=== PATIENT | male | born 1960 | race Caucasian/White ===

== ENCOUNTER → 2022-06-08 16:32 | Outpatient (CLI) | payer MEDICARE, SELFPAY ==
--- NOTE | ~2022-06-08 | XR_ITS ---
EXAM: XR lumbar spine min 4V DATE: 06/08/2022 17:03 HISTORY: M54.30 - Sciatica, unspecified side . COMPARISON: None available. FINDINGS: 5 nonrib-bearing lumbar-type vertebral bodies. Pedicles intact. No pars defect. 3 mm anter olisthesis of L4 on L5. Vertebral body heights preserved. Moderate L2-3 and L4-5 disc space narrowing . Severe narrowing at L3-4 with vacuum phenomenon. Multilevel marginal osteophytosis, partially bridg ing anterior osteophyte at L3-4. Multilevel facet hypertrophy and sclerosis. No fracture or dislocati on. Minimal aortic calcification. IMPRESSION: Grade 1 anterolisthesis at L4-5. Multilevel degenerative disc disease, severe at L3-4. Mu ltilevel facet arthropathy. Reviewed, dictated and finalized at location K. IMPRESSION: Grade 1 anterolisthesis at L4-5. Multilevel degenerative disc disea se, severe at L3-4. Multilevel facet arthropathy.
== END ==
PROVIDERS: PCP Family Medicine; Visit Provider Physician Assistant Medical
DX: M54.30 Sciatica, unspecified side (principal); M51.36 Other intervertebral disc degeneration, lumbar region
CPT/HCPCS: 72110

== ENCOUNTER 2025-05-22 08:21 | Outpatient (CLI) | payer MEDICARE, SELFPAY ==
--- OUTSIDE RECORDS SUMMARY | 2025-05-22 08:34 | XMS_ITS | Clinical Summary ---
Author Organization [facility] Address [address] 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 This disclosure is being madepursuant to the Care Everywhere program and may not contain all information available regarding this patient. Last updated 18.[facility] Allergies No known active allergies Medications * Be aware that medications may not be up to date on this document. Alwaysverify current medications with the patient. gentamicin (GARAMYCIN) 0.1 % cream Apply to affected area 2 times daily 30 g 3 8 Active ONETOUCH ULTRA TEST STRIPS test stripIndicatio ns:Type 2 diabetes mellitus with hyperglycemia, with long-term current use of insulin (HCC) Use 1 strip as directed 300 strip 4 9 Active allopurinol (ZYLOPRIM) 300 MG tablet Take 300 mg by mouth once daily 0 Active ALPRAZolam (XANAX) 0.5 MG tablet TAKE 1 TABLET BY MOUTH THREE TIMES A DAY NEEDED FOR ANXIETY 0 Active atorvastatin (LIPITOR) 20 MG tablet Take 20 mg by mouth once daily 0 Active lisinopril (PRINIVIL; ZESTRIL) 20 MG tablet Take 20 mg by mouth 2 times daily 0 Active metoprolol succinate XL 24hr (TOPROL XL) 100 MG tablet Take 100 mg by mouth once daily 0 Active testosterone (ANDROGEL;TEST IM) 50 MG/5GM (1%) gel PLEASE SEE ATTACHED FOR DETAILED DIRECTIONS 0 Active insulin glargine (LANTUS SOLOSTAR) penIndications :Type 2 diabetes mellitus with hyperglycemia, with long-term current use of insulin (HCC) Inject 30 Units subcutaneously at bedtime 5 Pen 11 0 Active insulin lispro (HUMALOG;ADMEL OG) 100 UNIT/ML penIndications :Type 2 diabetes mellitus with hyperglycemia, with long-term current use of insulin (HCC) Inject 7-9 Units subcutaneously 3 times daily before meals 5 Pen 11 0 Active metFORMIN (GLUCOPHAGE) 500 MG tabletIndicati ons:Type 2 diabetes mellitus with hyperglycemia, with long-term current use of insulin (HCC) Take 1 tablet by mouth 2 times daily 180 tablet 4 0 Active Active Problems Problem Noted Date Diagnosed Date Type 2 diabetes mellitus wit h hyperglycemia, with long-term current use of insulin 12/07/2018 Chronic pancreatitis 12/07/2018 Vitamin B12 deficiency 12/07/2018 Immunizations Immunization Administration Dates Next Due TDAP (7yrs+) 04/19/2014 Family History Medical History Relation Name Comments None Known Brother None Known Father None Known Maternal Grandfather None Known Maternal Grandmother None Known Mother None Known Other None Known Paternal Grandfather None Known Paternal Grandmother None Known Sister Alcohol abuse Neg Hx Asthma Neg Hx Dementia Neg Hx Depression Neg Hx Drug Abuse Neg Hx Glaucoma Neg Hx Gout Neg Hx Leukemia Neg Hx Migraine Neg Hx Multiple Sclerosis Neg Hx Other Neg Hx Thyroid Disease Neg Hx Relation Name Status Comments Brother Father Maternal Grandfather Maternal Grandmother Mother Other Paternal Grandfather Paternal Grandmother Sister Social History Tobacco Use Types Packs/Day Years Used Date Smoking Tobacco: Never Smokeless Tobacco: Never Alcohol Use Standard Drinks/Week Comments No 0 (1 standard drink = 0.6 oz pur e alcohol) Sex and Gender Information Value Date Recorded Sex Assigned at Not on file 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 Gender Identity Not on file Sexual Orientation Not on file Last Filed Vital Signs Vital Sign Reading Time Taken Comments Blood Pressure 134/84 04/23/2020 3:11 PM CDT Pulse 76 04/23/2020 3:11 PM CDT Temperature 37 C (98.6 F) 04/23/2020 3:11 PM CDT Respiratory Rate 12 03/17/2017 3:01 PM CDT Oxygen Saturation 98% 04/23/2020 3:11 PM CDT Inhaled Oxygen Concentration - - Weight 88 kg (194 lb) 04/23/2020 3:11 PM CDT Height 177.8 cm (5' 10) 04/23/2020 3:11 PM CDT Body Mass Index 27.84 04/23/2020 3:11 PM CDT Plan of Treatment Health Maintenance Due Date Last Done Comments COLOGUARD (AGES 45-75) - COLON CA SCREENING 1958 COLON MONITORING 1958 COLONOSCOPY - COLON CA SCREENING 1960 CT COLONOGRAPHY - COLON CA SCREENING 1960 Colorectal Cancer Screening 1958 FIT - COLON CA SCREENING 1958 FLEX SIG - COLON CA SCREENING 1958 HEPATITIS C SCREENING 08/05/1976 PNEUMOCOCCAL VACCINE 50+ (1 of 1 - PCV) 2008 ZOSTER VACCINE (1 of 2) 2008 DIABETES-SERUM CREATININE 03/17/20182016, 11/02/2014, 11/01/2014, Additional history exists Respiratory Syncytial Virus (RSV) Vaccine Pt: or over 60 yrs (1 - Risk 60-74 years 1-dose series) 2018 DIABETES-HGB A1C 10/21/2020 04/23/2020, , 03/17/2017, Additional history exists DIABETES-FOOT EXAM WITH MONOFILAMENT 04/23/2021 04/23/2020 DTAP/TDAP/TD VACCINES (2 - Td or Tdap) 04/19/2024 04/19/2014 DEPRESSION SCREENING 08/22/2024 DIABETES - URINE PROTEIN SCREENING 08/22/2024 03/17/2017, 11/13/2015, 05/12/2015 COVID-19 VACCINE ( - season) 2025 INFLUENZA VACCINE (#1) 2025 HEPATITIS B VACCINE Aged Out No longe r eligible based on patient's age to complete this topic HIB VACCINE Aged Out No longer eligi ble based on patient's age to complete this topic HPV VACCINE Aged Out No longer eligi ble based on patient's age to complete this topic MENINGOCOCCAL (Group B) VACCINE SHARED DECISION-MAKING Aged Out No longer eligible based on patient's age to complete this topic MENINGOCOCCAL GROUPS A/C/Y/W VACCINE Aged Out No longer eligible based on patient's age to complete this topic Procedures Procedure Name Priority Date/Time Associated Diagnosis Comments HEMOGLOBIN A1C - POINT OF CARE (AMB) [facility] Routine 04/23/2020 Type 2 diabetes mellitus with hyperglycemia, with long-term current use of insulin MICROALB/CREAT RATIO URINE RANDOM PANEL Routine 03/17/2017 4:41 PM CDT COMPREHENSIVE METABOLIC PANEL Routine 03/17/2017 4:41 PM CDT from Last 3 Months or Most Recently Relevant to Health Maintenance Results * HEMOGLOBIN A1C - POINT OF CARE (AMB) [facility] (04/23/2020) Hemoglobin A1c POCT 9.9 BLOOD SPECIMEN / Unknown 04/23/2020 us Mery Carlton MD LAB - POINT OF CARE ORDERABLE S Final Result * MICROALB/CREAT RATIO URINE RANDOM PANEL (03/17/2017 4:41 PM CDT) Albumin Random Urine <5.0 Not Established mcg/mL [facility] Creatinine Urine 43 Not Established mg/dL [facility] Comment:Result obtained by shasta valencia. Urine Albumin/Creati nine Ratio <12 <30 mg/g [facility] Albumin/Creati nine Ratio Urine See Comment <30 mg/g [facility] Comment:Unable to calculate the Urine Albumin/Creatinine Ratio due to one or more analyte concentration(s) being outside the measuring limits of the instrument. Urine specimen (specimen) URINE / Unknown 03/17/2017 4:41 PM CDT 03/17/2017 5:05 PM CDT us Beltran Leos MD LAB - URINE CHEMISTRY ORDERABL ES Final Result [facility] [address] [place] [address] * (ABNORMAL) COMPREHENSIVE METABOLIC PANEL (03/17/2017 4:41 PM CDT) BUN 27(H) 7 - 26 mg/dL [facility] Creatinine 1.1 0.6 - 1.2 mg/dL [facility] Sodium 135(L) 136 - 145 mmol/L [facility] Potassium 4.3 3.5 - 4.5 mmol/L [facility] Chloride 100 98 - 107 mmol/L [facility] CO2 25 22 - 29 mmol/L [facility] Glucose 196(H) 70 - 115 mg/dL [facility] Calcium 9.7 8.4 - 10.2 mg/dL [facility] Protein Total 8.0 6.0 - 8.3 g/dL [facility] Albumin 3.9 3.4 - 5.0 g/dL [facility] Bilirubin Total 1.7(H) 0.2 - 1.2 mg/dL [facility] Alkaline Phosphatase 78 40 - 150 Units/L [facility] ALT 22 0 - 55 Units/L [facility] AST 23 5 - 34 Units/L [facility] Anion Gap 14 8 - 18 [facility] BUN/Creatinine Ratio 25(H) 7 - 23 [facility] Osmolality Calculated 291 270 - 300 mOsm/kg [facility] Albumin/Globulin Ratio 1.0(L) 1.1 - 2.3 [facility] eGFR >60 >60 mL/min/1.7 3 m2 [facility] Blood specimen (specimen) BLOOD SPECIMEN / Unknown 03/17/2017 4:41 PM CDT 03/17/2017 5:04 PM CDT Beltran Leos MD LAB - CHEMISTRY ORDERABLES Fin al Result Performing Organization Address City/[facility]/ZIP Co de Phone Number [address] [phone] from Last 3 Months or Most Recently Relevant to Health Maintenance Insurance MEDICARE
--- OUTSIDE RECORDS SUMMARY | 2025-05-22 08:34 | XMS_ITS | Encounter Summary ---
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 Name Role Phone Unavailable Primary Care Provider Unavailabl e Encounter Details Date Type Department Care Team (Late st Contact Info) Description 04/14/2020 Telephone [facility] [address] [place] [phone] Beltran Leos MD [address] [place] [address] Social History Tobacco Use Types Packs/Day Years Used Date Smoking Tobacco: Never Smokeless Tobacco: Never Alcohol Use Standard Drinks/Week Comments No 0 (1 standard drink = 0.6 oz pur e alcohol) Sex and Gender Information Value Date Recorded Sex Assigned at Not on file 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
--- OUTSIDE RECORDS SUMMARY | 2025-05-22 08:34 | XMS_ITS | Clinical Summary ---
Author Organization [facility] Address [address] [place] [address] Care Team Providers Care French Professor Name Role Phone Rachael Espinosa MD Primary Care Provider [phone] Allergies No known active allergies Medications aspirin 81 mg tablet Take 1 tablet (81 mg total) by mouth daily Active omega-3 fatty acids 500 mg capsule 2 times daily. Activ e multivitamin tabletIndicati ons:Vitamin Deficiency Prevention daily. Active cyanocobalamin (Vitamin B-12) 500 mcg tabletIndicati ons:Prevention of Vitamin B12 Deficiency daily Pt Taking B Complex Active niacin ER (NIASPAN) 500 mg CR tablet Take 1 tablet (500 mg total) by mouth nightly Active allopurinol (ZYLOPRIM) 100 mg tablet Take 1 tablet (100 mg total) by mouth daily Active metoprolol XL (TOPROL-XL) 100 mg 24 hr tablet Take 1 tablet (100 mg total) by mouth daily. 90 tablet 3 8 Active lisinopril (PRINIVIL,ZEST RIL) 20 mg tablet Take 1 tablet (20 mg total) by mouth 2 (two) times a day. 180 tablet 2 8 Active ALPRAZolam (XANAX) 0.5 mg tablet as needed 2 9 Active testosterone (TESTIM,VOGELX O) 50 mg/5 gram (1 %) gel 5 9 Active blood glucose diagnostic strip 1 each by Not Applicable route 04/18/201 9 Active cinnamon bark 500 mg capsule Take 1 capsule (500 mg total) by mouth daily Active turmeric root extract 500 mg capsule Take by mouth Active atorvastatin (LIPITOR) 40 mg tablet Take 1 tablet (40 mg total) by mouth daily Active allopurinoL (ZYLOPRIM) 300 mg tablet Take 1 tablet (300 mg total) by mouth daily 2 Active traMADoL (ULTRAM) 50 mg tablet Take by mouth every 6 (six) hours as needed 2 Active celecoxib (CeleBREX) 200 mg capsule Take by mouth daily 3 Active colchicine (COLCRYS) 0.6 mg capsule TAKE 1 CAPSULE BY MOUTH TWICE A DAY NEEDED FOR GOUT FLARE 3 Active insulin lispro (HumaLOG, ADMELOG) 100 unit/mL pen for injection INJECT 8 UNITS SUBCUTANEOUSLY DAILY 3 Active Farxiga 10 mg tabletIndicati ons:Type 2 diabetes mellitus with hyperglycemia, with long-term current use of insulin (HCC) Take 1 tablet (10 mg total) by mouth daily 90 tablet 3 4 025 Active metFORMIN (GLUCOPHAGE) 1,000 mg tabletIndicati ons:Type 2 diabetes mellitus with hyperglycemia, with long-term current use of insulin (HCC) Take 1 tablet (1,000 mg total) by mouth 2 (two) times a day with meals 180 tablet 3 4 025 Active insulin lispro (HumaLOG) 100 unit/mL vial for injectionIndic ations:Type 2 diabetes mellitus with hyperglycemia, with long-term current use of insulin (HCC) Inject up to 100 units/day via insulin pump 30 mL 11 4 Active Active Problems Problem Noted Date Diagnosed Date Insulin pump status 07/08/2022 Assessment & Plan (07/18/2024 2:28 PM TIRE LAYER): Have long acting , basal insulin ( e.g. Lantus, Levemir, NPH, ) and insulin syringes as back up in case of pump failure If you have to take your insulin pump off for more than 12 h, start taking basal insulin, every 24 h ( take 80 % of the 24 h insulin delivered to you via insulin pump as calculated based on your basal rates ) and inject meal time insulin by injections, calculating the same way you do with your pump bolus ( according with carb intake and blood sugar readings ) Assessment & Plan (04/27/2023 2:45 PM CDT): Have long acting , basal insulin ( e.g. Lantus, Levemir, NPH, ) and insulin syringes as back up in case of pump failure If you have to take your insulin pump off for more than 12 h, start taking basal insulin, every 24 h ( take 80 % of the 24 h insulin delivered to you via insulin pump as calculated based on your basal rates ) and inject meal time insulin by injections, calculating the same way you do with your pump bolus ( according with carb intake and blood sugar readings ) Assessment & Plan (10/25/2022 3:42 PM TIRE LAYER): Have long acting , basal insulin ( e.g. Lantus, Levemir, NPH, ) and insulin syringes as back up in case of pump failure If you have to take your insulin pump off for more than 12 h, start taking basal insulin, every 24 h ( take 80 % of the 24 h insulin delivered to you via insulin pump as calculated based on your basal rates ) and inject meal time insulin by injections, calculating the same way you do with your pump bolus ( according with carb intake and blood sugar readings ) Assessment & Plan (07/08/2022 4:09 PM TIRE LAYER): New BR pattern: 12a 0.95, 6a 0.85. Hyperlipidemia associated with type 2 diabetes jamie jones 03/02/2022 Assessment & Plan (07/18/2024 2:27 PM TIRE LAYER): Patient on statin therapy Tolerating well Assessment & Plan (04/27/2023 2:44 PM CDT): Patient on statin therapy Tolerating well Assessment & Plan (10/25/2022 3:44 PM TIRE LAYER): Patient on statin therapy Tolerating well LDL at goal Low HDL, advise to increase exercise Assessment & Plan (07/08/2022 4:08 PM TIRE LAYER): Chronic problem. On statin therapy, no changes. Assessment & Plan (05/06/2022 2:12 PM CDT): Chronic problem. On statin therapy, no changes. Assessment & Plan (03/02/2022 3:20 PM CDT): Patient on statin therapy Tolerating well Last LDL still above goal Will reassess in 6 months Type 2 diabetes mellitus wit h hyperglycemia, with long-term current use of insulin 03/02/2022 Assessment & Plan (07/18/2024 2:28 PM TIRE LAYER): Chronic uncontrolled, slightly worsening Hemoglobin A1c 7.2% goal A1c less than 7% without hypoglycemia Reviewed Dexcom download Average sugar 161 Target blood sugar range 77% High 19% Very high 4% Dose 0% Very low less than 1% Patient having slight occasional postprandial hyperglycemia Counseled on diet and exercise No changes today Continue current T slim insulin pump settings continue oral metformin and Farxiga Advised to make an eye exam appointment Daily foot care Educated on hypoglycemia Labs today Follow-up in 12 months Assessment & Plan (04/27/2023 2:45 PM CDT): Chronic overall well controlled at goal A1c today 6.5 % No changes today Continue current T slim insulin pump settings Reviewed DEXCOM G 6 CGM continue oral metformin and Farxiga Advised to keep his eye exam appointment in July 2023 Daily foot care Educated on hypoglycemia Labs today Follow-up in 6 months Assessment & Plan (10/25/2022 3:41 PM TIRE LAYER): Chronic, significant improvement in control , at goal A1c today 6.5 % No changes today Continue current T slim insulin pump settings DEXCOM G 6 CGM continue oral metformin and Farxiga Assessment & Plan (07/08/2022 4:08 PM TIRE LAYER): Chronic problem, blood sugars are exceedingly stable since start on pump therapy. I adjusted overnight BR per below for morning rise, otherwise no changes. Assessment & Plan (05/06/2022 4:18 PM CDT): Chronic problem, improving but not at goal. No medication changes today. 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 We discussed 3 pump systems - Ominpod, T- slim, and Medtronic. Would not recommend Omnipod since it's not an integrated system. We reviewed at length the differences between T-slim and Medtronic, his main features he wants are rechargeable, and no blood sugar checks. He prefers T-slim so will start order for this. Assessment & Plan (03/02/2022 3:19 PM CDT): Chronic, uncontrolled, worsening A1c 10.3% Counseled on diet and exercise Plan to Increase Metformin 1000 mg oral twice daily with meals Start Farxiga 10 mg oral daily Decrease Lantus To 30-34 units SQ daily - Humalog 10 units three times with meals + below correctional scale 151 - 200 + 2 units 201 - 250 + 4 units 251 - 300 + 6 units 301 - 350 + 8 units Over 351 + 10 units Will start order process for DEXCOM G 6 CGM Recommend annual dilated eye exam Daily foot care - follow up in 2 months in [facility] ( discuss insulin Pumps ) , and [address] Magaña Snoring 03/12/2019 LV dysfunction 03/09/2019 Vitamin B12 deficiency 12/07/2018 Chronic pancreatitis 12/07/2018 Hypertension associated with diabetes 03/07/2018 Assessment & Plan (07/18/2024 2:27 PM TIRE LAYER): Chronic, well controlled Continue current medication regimen Assessment & Plan (04/27/2023 2:44 PM CDT): Chronic, well controlled Continue current medication regimen Assessment & Plan (10/25/2022 3:42 PM TIRE LAYER): Chronic, well controlled Continue current medication regimen Assessment & Plan (05/06/2022 2:12 PM CDT): Controlled on current medications, no changes. Assessment & Plan (03/02/2022 3:20 PM CDT): Chronic, well controlled Continue current medication regimen Abnormal blood chemistry level 11/30/2016 Medication dose changed 05/02/2015 TOF (tetralogy of Fallot) 04/16/2010 Resolved Problems Problem Noted Date Diagnosed Date Resolved Date Non-ischemic cardiomyopathy 03/07/2018 03/07/2018 Late, effect, cerebrovascular disease 11/16/2010 03/07/2018 Overview (12/01/2017): Description: tremor L > R, bilateral UE clumsinss Pulmonary valve insufficiency 09/24/2010 03/07/2018 Pulmonary valve stenosis 09/24/2010 Ventricular tachycardia 09/24/201002/19 Patent foramen ovale 09/24/2010 018 Dyslipidemia 04/16/2010 03/07/2018 Encounters Date Type Department Care Team Description 02/26/2025 Telephone [facility] Diabetes and Endocrinology [address] [place] [id number] Gómez Magaña, Luis Magaña MD Dexcom from Last 3 Months Immunizations Immunization Administration Dates Next Due Tdap 08/08/2017,04/19/2014,03/22/2007 Surgical History Surgery Date Site/Laterality Comments CARDIAC SURGERY Left x5 ERCP APPENDECTOMY PORT PLACEMENT CHEST >5 YEARS 08/27/2014 N/A Medical History Medical History Date Comments 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) Cerebral infarction due to e mbolism of unspecified cerebral artery - 08/2010, presumed due to air embolism (Added by TW Conv) Hx of foot surgery left Type 2 diabetes mellitus History of tetralogy of Fallot Acute biliary pancreatitis 2015 Family History Medical History Relation Name Comments Hypertension Brother Hypertension - 2 brothers (Added by TW Conv) Colon cancer Father Hypertension Sister Relation Name Status Comments Brother Father Mother Sister Social History Tobacco Use Types Packs/Day Years Used Date Smoking Tobacco: Never Smokeless Tobacco: Never Tobacco Cessation:Counseling Given: Not Answered PHQ-2 Answer Date Recorded PHQ-2 Total Score (If total score is 3 or more points, staff should administer the PHQ-9) 0 03/02/2022 Sex and Gender Information Value Date Recorded Sex Assigned at Not on file Legal Sex Male 6:37 PM TIRE LAYER Gender Identity Not on file Sexual Orientation Not on file Obstetrics History Last Filed Vital Signs Vital Sign Reading Time Taken Comments Blood Pressure 122/80 07/18/2024 1:29 PM TIRE LAYER Pulse 60 07/18/2024 1:29 PM TIRE LAYER Temperature 37 C (98.6 F) 03/12/2019 9:42 AM CDT Respiratory Rate 15 07/18/2024 1:29 PM TIRE LAYER Oxygen Saturation 96% 03/12/2019 9:42 AM CDT Inhaled Oxygen Concentration - - Weight 85.7 kg (189 lb) 07/18/2024 1:29 PM TIRE LAYER Height 177.8 cm (5' 10) 07/18/2024 1:29 PM TIRE LAYER Body Mass Index 27.12 07/18/2024 1:29 PM TIRE LAYER Plan of Treatment Health Maintenance Due Date Last Done Comments Colon Cancer Screening-Colonoscopy 1960 Fall Risk Assessment 1960 Hepatitis C Screening 1960 Prostate Cancer Screening-PSA 1960 Hepatitis B Screening 1976 Pneumococcal vaccine 65+ (1 of 2 - PCV) 1977 Zoster Vaccine (1 of 2) 2008 Depression Screening 03/02/2023 03/02/2022 Well Visit 65+ 2023 Dilated Eye Exam 08/03/2024 08/03/2023 Hemoglobin A1C 01/15/2025 07/18/2024, 09/0 01/2023, 10/25/2022, Additional history exists Influenza Vaccine (#1) 2025 Albumin Creatinine Ratio, Urine 07/18/2025 07/18/2024, 04/27/2023, 03/02/2022 Foot Exam 07/18/2025 07/18/2024, 09/0 01/2023, 10/25/2022, Additional history exists Lipid Panel 07/18/2025 07/18/2024, 10/25/2022 eGFR 07/18/2025 07/18/2024, 09/0 01/2023, 11/17/2021, Additional history exists DTaP/Tdap/Td Vaccine (4 - Td or Tdap) 08/08/2027 08/08/2017, 04/19/2014, 03/22/2007 Procedures Procedure Name Priority Date/Time Associated Diagnosis Comments EGFR Routine 07/18/2024 2:14 PM TIRE LAYER Type 2 diabetes mellitus with hyperglycemia, with long-term current use of insulin (HCC) Hypertension associated with diabetes (HCC) Hyperlipidemia associated with type 2 diabetes mellitus (HCC) LIPID PANEL Routine 07/18/2024 2:14 PM TIRE LAYER Type 2 diabetes mellitus with hyperglycemia, with long-term current use of insulin (HCC) Hyperlipidemia associated with type 2 diabetes mellitus (HCC) ALBUMIN CREATININE RATIO, URINE Routine 07/18/2024 2:14 PM TIRE LAYER Type 2 diabetes mellitus with hyperglycemia, with long-term current use of insulin (HCC) Hypertension associated with diabetes (HCC) POCT HEMOGLOBIN A1C Routine 07/18/2024 1 :31 PM TIRE LAYER Type 2 diabetes mellitus with hyperglycemia, with long-term current use of insulin (HCC) DIABETES EYE EXAM Routine 08/03/2023 8:51 AM TIRE LAYER from Last 3 Months or Most Recently Relevant to Health Maintenance Results * (ABNORMAL) eGFR (07/18/2024 2:14 PM TIRE LAYER) eGFR 57(L) >=60 mL/min/1. 73 m2 Comment: Interpretive Data Reference Interval Normal >/= 90 mL/min/1.73m2 Mildly decreased* 60 - 89 mL/min/1.73m2 Mildly to moderately decreased 45 - 59 mL/min/1.73m2 Moderately to severely decreased 30 - 44 mL/min/1.73m2 Severely decreased 15 - 29 mL/min/1.73m2 Kidney Failure < 15 mL/min/1.73m2 *Relative to young adult level Estimated glomerular filtration rate is determined by the 2020 CKD-EPI equation recommended by the National Kidney Foundation (A Unifying Approach to GFR Estimation: Recommendations of the NKF-ASK Task Force on Reassessing the Inclusion of Race in Diagnosing Kidney Disease, JASN 2020). The CKD-EPI equation should not be used for patients with unstable renal function and has not been validated in children and those over 70. Current interpretive data was last reviewed 2021. Blood 07/18/2024 2:14 PM TIRE LAYER 07/18/2024 5:29 PM TIRE LAYER Luis Magaña MD LAB BLOOD ORDERABLE S Final Result Performing Organization Address [facility] Co de Phone Number EDGAR GIBBS [id number] [address] [facility] [place] [address] * Albumin Creatinine Ratio, Urine (07/18/2024 2:14 PM TIRE LAYER) Albumin Ur <12.0 mg/L Comment: Interpretive Data No reference range established. Current interpretive data was last revised 2019. Creatinine Ur 95.0 mg/dL EDGAR Comment: Interpretive Data No reference range established. Current interpretive data was last revised 2019. Albumin Creatinine Ratio, Ur <13 1 - 29 mg/g EDGAR Urine 07/18/2024 2:14 PM TIRE LAYER 07/18/2024 5:15 PM TIRE LAYER Luis Magaña MD LAB URINE ORDERABLE S Final Result Performing Organization Address [facility] Co de Phone Number EDGAR GIBBS [id number] [place] [address] * Lipid panel (07/18/2024 2:14 PM TIRE LAYER) Cholesterol 194 30 - 199 mg/dL Comment: Interpretive Data Ages < or = 19 years Acceptable: <170 mg/dL Borderline high: 170-199 mg/dL High: >or= 200 mg/dL Ages > or = 20 years Desirable: <200 mg/dL Borderline high: 200-239 mg/dL High: >or= 240 mg/dL Literature References: 1. Expert Panel on Integrated Guidelines for Cardiovascular Health and Risk Reduction in Children and Adolescents. Pediatrics 2011;128:S213 2. NCEP Expert Panel. Circulation 2004;110:227 Current Interpretive Data was last revised on 2018. Triglycerides 127 <=149 mg/dL EDGAR Comment: Interpretive Data Ages < or = 9 years Acceptable: <75 mg/dL Borderline high: 75-99 mg/dL High: >or= 100 mg/dL Ages 10 to 20 years Acceptable: <90 mg/dL Borderline high: 90-129 mg/dL High: >or= 130 mg/dL Ages > or = 20 years Desirable: <150 mg/dL Borderline high: 150-199 mg/dL High: 200-499 mg/dL Very high: >or= 499 mg/dL Literature References: 1. Expert Panel on Integrated Guidelines for Cardiovascular Health and Risk Reduction in Children and Adolescents. Pediatrics 2011;128:S213 2. NCEP Expert Panel. Circulation 2004;110:227 Current Interpretive Data was last revised on 2018. HDL 46 >=40 mg/dL EDGAR Comment: Interpretive Data Ages < or = 19 years Acceptable: >45 mg/dL Borderline low: 40-45 mg/dL Low: <40 mg/dL Ages > or = 20 years Desirable: >or= 60 mg/dL Low: <40 mg/dL Literature References: 1. Expert Panel on Integrated Guidelines for Cardiovascular Health and Risk Reduction in Children and Adolescents. Pediatrics 2011;128:S213 2. NCEP Expert Panel. Circulation 2004;110:227 Current Interpretive Data was last revised on 2018. LDL, calculated 125 <=129 mg/dL EDGAR Comment: Interpretive Data Ages < or = 19 years Acceptable: <110 mg/dL Borderline high: 110-129 mg/dL High: >or= 130 mg/dL Ages > or = 20 years Optimal: <100 mg/dL Near optimal: 100-129 mg/dL Borderline high: 130-159 mg/dL High: >160 mg/dL Calculated using the Fawad LDL-C estimating equation. This equation was implemented on 2024. Prior to this date LDL-C was estimated using the Friedewald equation. Literature References: 1. Expert Panel on Integrated Guidelines for Cardiovascular Health and Risk Reduction in Children and Adolescents. Pediatrics 2011;128:S213 2. NCEP Expert Panel. Circulation 2004;110:227 3. Fawad Wong al. KALI Cardiol. 2020 December 20;5(5):540-548. doi: 10.1001/[email or web address].2020.0013 Current Interpretive Data was last revised on 2024. Non-HDL Cholesterol 148 mg/dL EDGAR Comment: Interpretive Data Ages < or = 19 years Acceptable: <120 mg/dL Borderline high: 120-144 mg/dL High: >145 mg/dL Ages > or = 20 years When triglycerides are >200 mg/dL, Non-HDL cholesterol is a secondary target of therapy with treatment goals that are 30 mg/dL greater than the LDL cholesterol target. Literature References: 1. Expert Panel on Integrated Guidelines for Cardiovascular Health and Risk Reduction in Children and Adolescents. Pediatrics 2011;128:S213 2. NCEP Expert Panel. Circulation 2004;110:227 Current Interpretive Data was last revised on 2018. Chol/HDL ratio 4 EDGAR Blood 07/18/2024 2:14 PM TIRE LAYER 07/18/2024 5:15 PM TIRE LAYER Luis Magaña MD LAB BLOOD ORDERABLE S Final Result EDGAR [id number] [place] [address] * POCT hemoglobin A1c (07/18/2024 1:31 PM TIRE LAYER) Pathologist [facility] Hemoglobin A1C, POC 7.2 4.0 - 5.6 % Blood 07/18/2024 1:31 PM TIRE LAYER Luis Magaña MD POINT OF CARE TEST ORDERABLES Final Result * DIABETES EYE EXAM (08/03/2023 8:51 AM TIRE LAYER) Luis Provider HEALTH MAINTENANCE Final Result from Last 3 Months or Most Recently Relevant to Health Maintenance Insurance MEDICARE [facility] MEDICARE ADVANTAGE [facility] MEDICARE ADVANTAGE [facility] MEDICARE ADVANTAGE Care Teams French Professor Relationship Specialty Start Date End Date Rachael Espinosa MD PCP - General Family Medicine 12/02/21
--- NOTE | 2025-05-22 08:57 | ECHO_ITS ---
Patient Info Name: Luis Fernando Guadarrama Age: 64 years : 1960 Gender: Male Ht: 70 in Wt: 180 lbs BSA: 2.02 m2 HR: 80 bpm BP: 112 / 76 mmHg Heart Rhythm: Sinus Rhythm Technical Quality: Good Exam Date: 05/22/2025 9:07 AM Patient Status: O Admit Date: 05/22/2025 Exam Type: CA echo dop color flow w con Complete two-dimensional, color flow and Doppler transthoracic echocardiogram is performed with contrast to opacify the left ventricle and to improve the deliniation of the left ventricle endocardial borders. Frameman: Julia Powell Attending Provider: Anthony Villegas DO Contrast/Agitated Saline Contrast/Ag. Saline: Definity Amount: 2.00 ml New IV Access: Right Site Condition: IV removed Summary 1. Definity contrast administered improved wall motion interpretation. 2. Left ventricular chamber dimension is severely enlarged. 3. Left ventricular systolic function is severely globally reduced, estimated at 20-25. 4. The left ventricular diastolic function is grade I diastolic dysfunction. 5. E/e' 8 is minimally elevated. 6. Left atrial chamber dimension is mildly enlarged. 7. Right atrial chamber dimension is moderately enlarged. 8. The aortic valve is probably bicuspid. 9. There is mild aortic valve sclerosis. 10. There is mild tricuspid valve regurgitation. 11. Mild pulmonary hypertension, estimated pulmonary arterial systolic pressure is 49 mmHg. 12. The aortic root size at the sinus of Valsalva is mildly dilated at 4.2 cm. Left Ventricle E/e' 8 is minimally elevated. Left ventricular chamber dimension is severely enlarged. Left ventricular systolic function is severely globally reduced, estimated at 20-25. The left ventricular diastolic function is grade I diastolic dysfunction. Definity contrast administered improved wall motion interpretation. Right Ventricle Right ventricular chamber dimension is normal. Right ventricular systolic function is normal and with normal TAPSE 2.8 cm. Left Atria Left atrial chamber dimension is mildly enlarged. Right Atria Right atrial chamber dimension is moderately enlarged. Aortic Valve The aortic valve is probably bicuspid. There is mild aortic valve sclerosis. There is no aortic valve stenosis. There is no aortic valve regurgitation. Pulmonic Valve There is no pulmonic regurgitation. Mitral Valve There is no mitral valve stenosis. There is no mitral valve regurgitation. Tricuspid Valve There is mild tricuspid valve regurgitation. Mild pulmonary hypertension, estimated pulmonary arterial systolic pressure is 49 mmHg. Pericardium/Pleural There is no pericardial effusion. Inferior Vena Cava Normal inferior vena cava with >50% collapse upon inspiration consistent with normal right atrial pressure, 5 mmHg. Aorta The aortic root size at the sinus of Valsalva is mildly dilated at 4.2 cm. Left Ventricular Outflow Tract Name Value Normal LVOT 2D LVOT Diameter 2.2 cm LVOT Doppler LVOT Peak Velocity 45 cm/s LVOT Peak Gradient 1 mmHg LVOT Mean Gradient 0 mmHg LVOT VTI 10 cm LVOT VTI/AV VTI Ratio 0.7 LVOT Stroke Volume 38 ml LVOT CO 2.2 l/min LVOT CI 1.1 l/min/m2 Pulmonic Valve Name Value Normal RVOT Doppler RVOT Peak Velocity 68 cm/s RVOT Peak Gradient 2 mmHg PV Doppler PV Peak Velocity 206 cm/s PV Peak Gradient 17 mmHg Mitral Valve Name Value Normal MV Diastolic Function MV E Peak Velocity 52 cm/s MV A Peak Velocity 74 cm/s MV E/A 0.7 MV Decel Time (PW) 361 ms MV Annular TDI MV E/e' (Septal) 12.9 MV E/e' (Lateral) 6.4 MV E/e' (Average) 9.7 Tricuspid Valve Name Value Normal TV Regurgitation Doppler TR Peak Velocity 330 cm/s TR Peak Gradient 44 mmHg Estimated PAP/RSVP RA Pressure 5 mmHg <=5 PA Systolic Pressure 49 mmHg <36 RV Systolic Pressure 49 mmHg <36 TV Annular TDI TV Lateral Keira s' Velocity 11.8 cm/s >=9.5 Aorta Name Value Normal Ascending Aorta Ao Root Diameter (MM) 2.8 cm Ao Root Diam Index (MM) 1.4 cm/m2 Aortic Valve Name Value Normal AV Doppler AV Peak Velocity 75 cm/s AV Peak Gradient 2 mmHg AV Mean Gradient 1 mmHg AV VTI 15 cm AV Area (Cont Eq VTI) 2.5 cm2 >=3.0 AV Area (Cont Eq Bhargav) 2.2 cm2 AV DI (Bhargav) 0.60 AV Regurgitation 2D LVOT Area 3.7 cm2 Ventricles Name Value Normal LV Dimensions 2D/MM IVS Diastolic Thickness (2D) 0.8 cm 0.6-1.0 LVID Diastole (2D) 6.3 cm 4.2-5.8 LVIW Diastolic Thickness (2D) 0.8 cm 0.6-1.0 LVID Systole (2D) 4.7 cm 2.5-4.0 LVOT Diameter 2.2 cm LV Mass (2D Cubed) 203.29 g 88.00-224.00 LV Mass Index (2D Cubed) 101 g/m2 49-115 Relative Wall Thickness (2D) 0.25 <=0.42 LV Fractional Shortening/Ejection Fraction 2D/MM LV Fractional Shortening (2D) 24 % 25-43 LV EF (2D Teichholz) 48 % LV Diastolic Volume (4C MOD) 126 ml LV EF (4C MOD) 55 % LV Diastolic Volume (2C MOD) 117 ml LV EF (2C MOD) 33 % LV Diastolic Volume (BP MOD) 125 ml 62-150 LV Diastolic Volume Index (BP MOD) 62 ml/m2 34-74 LV Systolic Volume (BP MOD) 70 ml 21-61 LV Systolic Volume Index (BP MOD) 35 ml/m2 11-31 LV EF (BP MOD) 44 % 52-72 LV Diastolic Length (4C) 8.6 cm LV Systolic Length (4C) 7.0 cm LV Stroke Volume (4C MOD) 69 ml Atria Name Value Normal LA Dimensions LA Dimension (MM) 5.0 cm 3.0-4.0 LA Volume (4C A-L) 71 ml LA Volume (BP A-L) 77 ml RA Dimensions RA Area (4C) 24.9 cm2 <=18.0 Report Signatures
[2025-05-22] MEDS: PERFLUTREN LIPID MICROSPHERES 1.5 ML VIAL DILUTED TO 10 ML TOTAL VOLUME IV PUSH (10:30)
--- NOTE | 2025-05-22 11:16 | IVDEFINITY ---
Prior to administration of IV Definity the patient was educated on the risks and benefits of the imaging enhancing agent including potential adverse side effects. The patient verbalized understanding. Allergies were verified. No exclusion criteria were identified and at least one of the following inclusion criteria were met: 1) physician request, 2) patient technically difficult to image (per the [place] [employer] guidelines of two or more segments not discernable within the apical view), or 3) questionable left ventricular function. ?
== END 2025-05-22 08:22 | disposition home or self-care (01) ==
LOC: ANHCARD 08:23
PROVIDERS: PCP Family Medicine; Visit Provider Internal Medicine Cardiovascular Disease
DX: I44.7 Left bundle-branch block, unspecified (principal); Z98.890 Other specified postprocedural states; Z95.2 Presence of prosthetic heart valve; I10 Essential (primary) hypertension; E78.5 Hyperlipidemia, unspecified
CPT/HCPCS: C8929; Q9957